=== PATIENT | female | born 1950 | race Caucasian/White ===

== ENCOUNTER 2020-12-30 12:51 | Outpatient (CLI) | payer MEDICARE, MEDICAID, SELFPAY ==
--- NOTE | 2020-12-30 13:12 | MM_ITS ---
WS: [id number] BILATERAL DIGITAL SCREENING MAMMOGRAPHY WITH CAD CLINICAL INFORMATION: SCREENING HISTORY: Screening mammogram. No current complaints. COMPARISON: TECHNIQUE: Bilateral CC and MLO views. FINDINGS: Scattered fibroglandular densities bilaterally. Vascular calcification. No suspicious focal mass, asy mmetry, calcifications, or architectural distortion. No evidence of malignancy. MM/[place] [id number] IMPRESSION: BI-RADS: 2-Benign FOLLOW UP: 1 Year Follow-up Recommend return to annual screening mammography.
== END 2020-12-30 12:52 | disposition home or self-care (01) ==
LOC: RADSHAW 12:59
PROVIDERS: PCP Internal Medicine; Visit Provider Internal Medicine
DX: Z12.31 Encounter for screening mammogram for malignant neoplasm of breast (principal)
CPT/HCPCS: 77067

== ENCOUNTER → 2021-05-13 17:30 | Outpatient (BNVA) | payer MEDICARE, MEDICAID, SELFPAY | PROVIDERS: PCP Internal Medicine; Visit Provider Registered Nurse Neonatal Intensive Care | DX: R05 Cough (principal); Z20.822 Contact with and (suspected) exposure to COVID-19 | CPT/HCPCS: 87635 ==

== ENCOUNTER 2021-05-14 15:36 | Emergency (ER) | payer MEDICARE, MEDICAID, SELFPAY ==
[2021-05-14 17:06] VITALS: BP 131/73; PULSE 67; RESP 14; TEMP 36.9; O2SAT 94; BMI 29.0
--- NOTE | 2021-05-14 18:12 | XRR_ITS ---
PROCEDURE INFORMATION: Exam: XR Chest Exam date and time: 05/14/2021 6:12 PM Age: 70 years old Clinical indication: Cough and shortness of breath; Additional info: SOB TECHNIQUE: Imaging protocol: XR of the chest. Views: 1 view. COMPARISON: No relevant prior studies available. FINDINGS: Lungs: Unremarkable. No consolidation. Pleural spaces: Unremarkable. No pleural effusion. No pneumothorax. Heart/Mediastinum: Unremarkable. No cardiomegaly. Bones/joints: Unremarkable. XR/XR chest 1V portable [id number] IMPRESSION: No acute findings.
--- NOTE | 2021-05-14 19:44 | W.ED.COVID ---
HPI - COVID General: Chief Complaint: COVID symptoms Stated Complaint: COVID+:[place] [facility] [place] Seen by Provider: 05/14/21 19:30 Triage information: Has fever, cough or shortness of breath. No known COVID + exposure last 14 days History of Present Illness: HPI Narrative: Patient is a 70-year-old female comes to the ED with Covid symptoms. Patient has been having a dry cough and shortness of breath for the past 4 days. She was seen at urgent care yesterday and they tested her for COVID-19 but results pending. Urgent care told patient to come here to the ED because they thought she seemed dehydrated. Patient endorses having some fatigue and says the shortness of breath occurs while at rest and gets worse when she is up moving around. She also describes having some chest heaviness as well. Patient has not received the COVID-19 vaccination. She denies any known contact with any Covid positive patients. Patient denies any history of lung disease and is not on any oxygen at home. Patient does report being outside and working in the heat over the past couple days. COVID 19 common symptoms: positive non-productive cough, dyspnea and fatigue; negative fever(s), chills, productive cough, headache(s), throat pain, nasal congestion, nausea, vomiting or diarrhea COVID 19 other sytmptoms: negative chest pain COVID Results: SARS-CoV-2 Antigen (Rapid) Negative (Negative) 05/14/21 19:43 05/14/21 SARS-CoV-2 RNA (RT-PCR) Detected (NOT DETECTED) A 05/13/21 17:30 05/13/21 Review of Systems Const: Reports: fatigue; Denies: fever(s) or chills Eyes: Denies: change in vision or eye discomfort ENMT: Denies: throat pain, odynophagia, nasal discharge or nasal congestion Card: Denies: chest pain, palpitations, edema, swelling of feet/ankles, dyspnea on exertion or orthopnea Resp: Reports: dyspnea and non-productive cough; Denies: productive cough GI: Denies: abdominal pain, nausea, vomiting, diarrhea, constipation or hematochezia : Denies: flank pain, dysuria or hematuria Musc: Denies: neck pain, back pain or extremity swelling Skin/Breast: Denies: rash or new lesions Neuro: Denies: headache(s), numbness in extremities or weakness in extremities Physical Exam Const: COMMON NORMALS: no acute distress, patient oriented x3 and alert GENERAL APPEARANCE: cooperative and comfortable HENMT: COMMON NORMALS: normocephalic HEAD & SCALP: normocephalic MOUTH: moist mucous membranes abnormal Details: parched THROAT: posterior oropharynx normal and uvula midline Neck/C-Spine: COMMON NORMALS: supple GENERAL: Yes normal visual inspection Resp: COMMON NORMALS: normal respiratory effort, No retractions, No use of accessory muscles and clear to auscultation bilaterally EFFORT & INSPECTION: Yes able to speak in complete sentences, Yes tachypneic (20-24 resp/min), No respiratory distress and No labored AUSCULTATION: clear to auscultation bilaterally Cardio: COMMON NORMALS: regular rate, regular rhythm, S1 normal heart sound present, S2 normal heart sound present, No gallops present (Cardio), No clicks present (Cardio), No murmurs present (Cardio) and Peripheral pulses 2+ throughout RATE: regular rate RHYTHM: regular rhythm HEART SOUNDS: S1 normal heart sound present and S2 normal heart sound present PERIPHERAL PULSES: Peripheral pulses 2+ throughout GI: COMMON NORMALS: Normal to inspection, nondistended, normoactive bowel sounds present, Soft to palpation, non-tender and no masses PALPATION: Yes Soft to palpation : COMMON NORMALS: Yes no CVA tenderness BLADDER/KIDNEY EXAM: Yes no CVA tenderness Back/Pelvis: COMMON NORMALS: no CVA tenderness Extremity: COMMON NORMALS: normal to inspection Neuro: COMMON NORMALS: patient oriented x3 and moves all extremities SENSORIUM/ORIENTATION: Yes alert Skin: GENERAL SKIN EXAM: dry skin Course Vital Signs: Vital signs: Vital Signs Temperature 98.4 F 05/14/21 17:06 Pulse Rate 72 05/15/21 00:12 Respiratory Rate 16 05/15/21 00:12 Blood Pressure 140/78 05/15/21 00:12 Pulse Oximetry 92 05/15/21 00:12 MDM - COVID MDM Narrative: Medical decision making narrative: Patient is a 70-year-old female comes to the ED with Covid symptoms. Patient is having some cough shortness of breath and some nausea and emesis. Patient has a COVID-19 PCR test pending. Patient has been outside working in the heat for the past couple days and could be the cause of some of her symptoms. Here in the ED patient appears in no acute distress or pain. Vitals are stable. Exam is benign. Potassium 3.0 and creatinine was 1.0. The rest of CBC and CMP were unremarkable. Patient's rapid Covid test was negative. Chest x-ray showed no acute findings. Troponin negative and EKG showed normal sinus rhythm with no signs of any ST segment elevation or depression seen. RT performed and home O2 eval and patient did not qualify. Patient was given IV fluids, potassium chloride. Patient diagnosed with viral syndrome, hypokalemia and dehydration. She was discharged home with a prescription for Zofran and told to follow-up with her PCP in 3 to 5 days to recheck potassium levels. Return to ED precautions given. I told her that her PCR test is still pending and she will be notified with results when they are in. Patient understood agree with plan. Lab Data: Attestation: I reviewed the patient's lab results. Labs: Lab Results 05/14/21 05/14/21 05/14/21 Range/Units 19:43 19:58 19:58 WBC 4.4 (4.0-10.0) 10^3/ uL RBC 4.82 (4.1-5.3) 10^6/u L Hgb 13.9 (11.5-15.3) g/dL Hct 39.7 (37.0-47.0) % MCV 82.4 (81-99) fL MCH 28.8 (28.0-34.0) pg MCHC 35.0 (30.0-36.0) g/dL RDW 12.2 (12.1-15.1) % Plt Count 128 L (130-400) 10^3/c mm MPV 11.4 H (7.4-10.4) fL Neut % (Auto) 68.0 % Lymph % (Auto) 21.4 % [place] % (Auto) 10.4 % Eos % (Auto) 0.0 % Baso % (Auto) 0.0 % Neut # (Auto) 3.01 (1.8-7.7) 10^3/u L Lymph # (Auto) 1.0 (0.8-4.8) 10^3/u L [place] # (Auto) 0.5 (0.2-0.9) 10^3/u L Eos # (Auto) 0.0 (0.0-0.8) 10^3/u L Baso # (Auto) 0.0 (0.0-0.1) 10^3/u L Nucleated RBC % (a uto) 0 % Nucleated RBCs # 0.0 /100WBC Sodium 133 L (136-145) mmol/L Potassium 3.0 L (3.5-5.1) mmol/L Chloride 92 L (98-107) mmol/L Carbon Dioxide 25 (22-29) mmol/L Anion Gap 19.0 (5-19) BUN 24 H (8-23) mg/dL Creatinine 1.0 H (0.5-0.9) mg/dL GFR Calculation Not Reportable Glucose 114 (65-115) mg/dL Calculated Osmolal ity 281 L (285-295) mOsm/k g Calcium 8.5 (8.5-10.5) mg/dL Total Bilirubin 0.7 (0.15-1.2) mg/dL AST 42 H (0-32) U/L ALT 28 (0-33) U/L Alkaline Phosphata se 79 (35-105) IU/L Troponin T Baselin e (0-10) ng/L Troponin T 120 [address] [place] (0-10) ng/L Delta Troponin T (0-10) ABS# Total Protein 7.2 (6.6-8.7) g/dL Albumin 4.3 (3.5-5.2) g/dL Globulin 2.9 (1.3-4.6) g/dL SARS-CoV-2 Ag (Rap id) Negative (Negative) 05/14/21 05/14/21 Range/Units 19:58 21:58 WBC (4.0-10.0) 10^3/ uL RBC (4.1-5.3) 10^6/u L Hgb (11.5-15.3) g/dL Hct (37.0-47.0) % MCV (81-99) fL MCH (28.0-34.0) pg MCHC (30.0-36.0) g/dL RDW (12.1-15.1) % Plt Count (130-400) 10^3/c mm MPV (7.4-10.4) fL Neut % (Auto) % Lymph % (Auto) % [place] % (Auto) % Eos % (Auto) % Baso % (Auto) % Neut # (Auto) (1.8-7.7) 10^3/u L Lymph # (Auto) (0.8-4.8) 10^3/u L [place] # (Auto) (0.2-0.9) 10^3/u L Eos # (Auto) (0.0-0.8) 10^3/u L Baso # (Auto) (0.0-0.1) 10^3/u L Nucleated RBC % (a uto) % Nucleated RBCs # /100WBC Sodium (136-145) mmol/L Potassium (3.5-5.1) mmol/L Chloride (98-107) mmol/L Carbon Dioxide (22-29) mmol/L Anion Gap (5-19) BUN (8-23) mg/dL Creatinine (0.5-0.9) mg/dL GFR Calculation Glucose (65-115) mg/dL Calculated Osmolal ity (285-295) mOsm/k g Calcium (8.5-10.5) mg/dL Total Bilirubin (0.15-1.2) mg/dL AST (0-32) U/L ALT (0-33) U/L Alkaline Phosphata se (35-105) IU/L Troponin T Baselin e 12 H (0-10) ng/L Troponin T 120 [address] [place] 10.38 H (0-10) ng/L Delta Troponin T -1.62 L (0-10) ABS# Total Protein (6.6-8.7) g/dL Albumin (3.5-5.2) g/dL Globulin (1.3-4.6) g/dL SARS-CoV-2 Ag (Rap id) (Negative) Imaging Data: CXR: Attestation: I personally reviewed and interpreted this imaging study as follows: Radiologist's impression: [address] [address] XRay Report Signed Patient: Citlaly Roman Unit #: [id number] : 1950 Age/Sex: 70 / F ADM Date: 05/14/21 Loc: ER Room/Bed: Attending Dr: Ordering Provider/Ordering MD: Anuradha Cedeño MD Date of Service: 05/14/21 Procedure(s): XR chest 1V portable [id number] Accession Number(s): [id number] Report Number: [id number] PROCEDURE INFORMATION: Exam: XR Chest Exam date and time: 05/14/2021 6:12 PM Age: 70 years old Clinical indication: Cough and shortness of breath; Additional info: SOB TECHNIQUE: Imaging protocol: XR of the chest. Views: 1 view. COMPARISON: No relevant prior studies available. FINDINGS: Lungs: Unremarkable. No consolidation. Pleural spaces: Unremarkable. No pleural effusion. No pneumothorax. Heart/Mediastinum: Unremarkable. No cardiomegaly. Bones/joints: Unremarkable. XR/XR chest 1V portable [id number] IMPRESSION: No acute findings. Dictated By: Jaime Durbin Signed By: Jaime Durbin Signed Date/Time: 05/14/211949 DD/ 47 EKG Data: EKG 1: Attestation: I personally reviewed and interpreted this EKG as follows: EKG interpretation date: 05/14/21 Interpretation: Normal sinus rhythm, 69 bpm, no ST segment elevation or depression noted. COVID Results: SARS-CoV-2 Antigen (Rapid) Negative (Negative) 05/14/21 19:43 05/14/21 SARS-CoV-2 RNA (RT-PCR) Detected (NOT DETECTED) A 05/13/21 17:30 05/13/21 Discharge Plan Discharge Patient Disposition: Home Clinical Impression: Viral syndrome, Hypokalemia, Dehydration Condition: Stable Prescriptions: New ondansetron 4 mg tablet,disintegrating 4 mg PO Q8H PRN (Reason: nausea and vomiting) Qty: 15 RF: 0 No Action hydrochlorothiazide 12.5 mg capsule 12.5 cap PO DAILY RF: 0 citalopram 20 mg tablet 20 tab PO DAILY RF: 0 pravastatin 40 mg tablet 40 tab PO DAILY RF: 0 spironolactone 25 mg tablet 25 tab PO DAILY RF: 0 amlodipine 10 mg tablet 10 tab PO DAILY RF: 0 benzonatate [Tessalon Perles] 100 mg capsule 100 mg PO TID PRN (Reason: cough) Qty: 30 RF: 0 Discharge Orders: Discharge ED (Routine); Ordered 05/14/21 Ordered By: Fredrick Arora Referrals: Beena Whaley, [Primary Care Provider] - Discharge Diet: Advance as tolerated Discharge Activity: Increase activity as tolerated Patient Instructions: Hypokalemia (ED), Viral Syndrome (ED) Activity Restrictions/Additional Instructions: Follow-up with medical provider to have potassium levels rechecked in about 3 to 5 days. Self quarantine as previously instructed until PCR test results come back. [facility] should contact you when test results are in or contact [facility] to find out results. Take medications as prescribed. Make sure you drink plenty of fluids and stay hydrated. Return to the ER or your medical provider if condition worsens. Please read and understand discharge instructions. Thank you for choosing [facility] for your healthcare needs today. Please realize this is an emergency room and that we are providing you with a medical screening exam and this may not be complete and all inclusive of all the testing and or work up that you may need to determine your ailment or severity of your illness. It is very important that you follow up as instructed or that you return to the Emergency Department should you have concerns or if your condition changes or worsens in any way. Coding Level of Care Code ED Public Health for [facility] Exam Comprehensive
--- NOTE | 2021-05-14 19:45 | ECG_ITS ---
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 Measurements Intervals [place] Rate: 69 P: 24 UT: 140 QRS: -45 QRSD: 145 T: 80 QT: 468 QTc: 502 Interpretive Statements SINUS RHYTHM MARKED LEFT AXIS DEVIATION [QRS AXIS < -30] LEFT BUNDLE BRANCH BLOCK [120+ ms QRS DURATION, 80+ ms Q/S IN V1/V2, 85+ ms R IN I/aVL/V5/V6] No previous ECG available for comparison Electronically Signed On 05-19-2021 0:27:44 CDT by Kimberlee Hutchinson M.D. [email or web address]
[2021-05-14] MEDS: sodium chloride 0.9% 1,000 ML 999 ML IV (19:50)
[2021-05-14 20:11] VITALS: O2SAT 95
[2021-05-14 20:13] LABS: Hematocrit 39.7 % (37.0-47.0); Hemoglobin 13.9 g/dL (11.5-15.3); Lymphocytes % 21.4 %; Mean Corpuscular Hemoglobin 28.8 pg (28.0-34.0); Mean Corpuscular Volume 82.4 fL (81-99); Mean Platelet Volume 11.4 fL (7.4-10.4); Monocytes # 0.5 10^3/uL (0.2-0.9); Monocytes % 10.4 %; Neutrophils # 3.01 10^3/uL (1.8-7.7); Nucleated Red Blood Cells % 0 %; Platelet Count 128 10^3/cmm (130-400); Red Blood Count 4.82 10^6/uL (4.1-5.3); Red Cell Distribution Width 12.2 % (12.1-15.1); White Blood Count 4.4 10^3/uL (4.0-10.0)
[2021-05-14 20:25] LABS: Troponin(5th) Baseline 12 ng/L (0-10)
[2021-05-14 20:27] LABS: Alanine Aminotransferase 28 U/L (0-33); Albumin Level 4.3 g/dL (3.5-5.2); Alkaline Phosphatase 79 IU/L (35-105); Aspartate Amino Transferase 42 U/L (0-32); Blood Urea Nitrogen 24 mg/dL (8-23); Calcium 8.5 mg/dL (8.5-10.5); Carbon Dioxide 25 mmol/L (22-29); Chloride 92 mmol/L (98-107); Globulin 2.9 g/dL (1.3-4.6); Glucose 114 mg/dL (65-115); Osmolality Calculated 281 mOsm/kg (285-295); Sodium 133 mmol/L (136-145); Total Bilirubin 0.7 mg/dL (0.15-1.2); Total Protein 7.2 g/dL (6.6-8.7)
[2021-05-14 20:47] LABS: SARS Covid-2 Antigen Negative (Negative)
[2021-05-14] MEDS: sodium chloride 0.9% 500 ML 999 ML IV (20:52)
[2021-05-14] MEDS: potassium chloride ER 20 mEq Tablet PO (20:52)
[2021-05-14 21:05] VITALS: BP 144/87; PULSE 69; RESP 18; O2SAT 95
--- NOTE | 2021-05-14 21:48 | PC.NURSE ---
Daughter Latisha Macdonald called and was given update, as she is on the pt's list. She states she is upstairs with another patient, so asks to be called if pt is to be discharged.
[2021-05-14 22:35] LABS: Troponin 5 2HR 10.38 ng/L (0-10)
[2021-05-14 22:45] LABS: Troponin 5 2HR Delta -1.62 ABS# (0-10)
[2021-05-14 22:52] VITALS: O2SAT 90; O2SAT 92
[2021-05-15 00:12] VITALS: BP 140/78; PULSE 72; RESP 16; O2SAT 92
== END 2021-05-15 00:13 | disposition home or self-care (01) ==
PROVIDERS: Emergency Medicine; Emergency Provider Physician Assistant; PCP Internal Medicine
DX: B34.9 Viral infection, unspecified (principal); E86.0 Dehydration; E87.6 Hypokalemia
CPT/HCPCS: 71045; 80053; 84484; 85025; 87040; 87426; 93005; 96360; 99284; J7030; J7040

== ENCOUNTER 2021-05-21 11:44 | Outpatient (CLI) | payer MEDICARE, MEDICAID, SELFPAY ==
[2021-05-21 12:16] VITALS: BP 128/68; PULSE 84; RESP 18; TEMP 36.7; O2SAT 92
[2021-05-21 12:53] VITALS: BP 119/62; PULSE 76; RESP 18; TEMP 36.9; O2SAT 92
[2021-05-21 13:47] VITALS: BP 112/61; PULSE 80; TEMP 36.6; O2SAT 94
== END 2021-05-21 14:10 | disposition home or self-care (01) ==
PROVIDERS: PCP Internal Medicine; Visit Provider Internal Medicine
DX: U07.1 COVID-19 (principal)
CPT/HCPCS: 96365

== ENCOUNTER 2022-09-01 13:45 | Outpatient (CLI) | payer MEDICARE, MEDICAID, SELFPAY ==
--- NOTE | 2022-09-01 13:57 | MM_ITS ---
WS: [id number] BILATERAL 3D TOMOSYNTHESIS DIGITAL SCREENING MAMMOGRAPHY WITH CAD CLINICAL INFORMATION: SCREENING HISTORY: Screening mammogram. No current complaints. COMPARISON: 2020 TECHNIQUE: Bilateral CC and MLO views. FINDINGS: Scattered fibroglandular densities bilaterally. No suspicious focal mass, asymmetry, calcifications, or architectural distortion. No evidence of malignancy. Vascular calcification. MM/[place] [id number] IMPRESSION: BI-RADS: 2-Benign FOLLOW UP: 1 Year Follow-up Recommend return to annual screening mammography.
== END 2022-09-01 13:46 | disposition home or self-care (01) ==
LOC: RAD 13:46
PROVIDERS: Visit Provider Family Medicine
DX: Z12.31 Encounter for screening mammogram for malignant neoplasm of breast (principal)
CPT/HCPCS: 77063; 77067

== ENCOUNTER 2022-09-01 13:45 | Outpatient (CLI) | payer MEDICARE, MEDICAID, SELFPAY ==
--- NOTE | 2022-09-01 14:17 | XR_ITS ---
WS: [id number] SCREENING DEXA SCAN 1Rebel CLINICAL INFORMATION: OSTEOPOROSIS SCREENING COMPARISON: None. FINDINGS: The L1-L4 bone mineral density measures 1.179 g/cm2. This corresponds to a T score score of 0.0 and Z score of 1.2. Left femoral neck bone mineral density measures 0.823 g/cm2. This corresponds to a T score of -1.5 an d Z score of -0.2. Right femoral neck bone mineral density measures 0.861 g/cm2. This corresponds to a T score -1.2of an d Z score of 0.1. Mean femoral neck bone mineral density measures 0.842 g/cm2. This corresponds to a T score of -1.3 an d Z score of 0.0. XR/XR DEXA axial skeleton* [id number] IMPRESSION: Normal bone mineralization lumbar spine. Osteopenia femoral necks Patient's FRAX calculated 10 year probability for major osteoporotic fracture i s 14.9 % and osteoporotic hip fracture is 4.1%.
== END 2022-09-01 13:46 | disposition home or self-care (01) ==
LOC: RAD 13:46
PROVIDERS: Visit Provider Nurse Practitioner Family
DX: Z78.0 Asymptomatic menopausal state (principal); Z13.820 Encounter for screening for osteoporosis
CPT/HCPCS: 77080

== ENCOUNTER 2023-09-20 08:30 | Outpatient (CLI) | payer MEDICARE, MEDICAID, SELFPAY ==
--- NOTE | 2023-09-20 08:35 | MM_ITS ---
WS: [id number] BILATERAL SCREENING DIGITAL TOMOSYNTHESIS MAMMOGRAM WITH CAD HISTORY: SCREENING COMPARISON: 09/01/2022 and 12/30/2020 Bilateral CC and MLO views with tomosynthesis and synthetic mammography submitted. Computer aided det ection analyzed. Breast composition: There are scattered areas of fibroglandular density. No suspicious masses, microc alcifications or architectural distortion. Numerous bilateral breast arterial calcifications. IMPRESSION: MM/[place] [id number] BI-RADS: 2-Benign FOLLOW UP: 1 Year Follow-up
== END 2023-09-20 08:31 | disposition home or self-care (01) ==
LOC: RAD 08:31
PROVIDERS: PCP Nurse Practitioner Family; Visit Provider Family Medicine
DX: Z12.31 Encounter for screening mammogram for malignant neoplasm of breast (principal)
CPT/HCPCS: 77063; 77067

== ENCOUNTER 2024-10-17 08:30 | Outpatient (CLI) | payer MEDICARE, MEDICAID, SELFPAY ==
--- NOTE | 2024-10-17 08:33 | MM_ITS ---
WS: [id number] Bilateral screening 3D tomosynthesis digital mammogram, 10/17/2024 8:35 AM Clinical Data: SCREENING Comparison: 09/20/2023, 09/01/2022, 12/30/2020, 03/10/2019, 04/17/2010, 08/20/2008. Findings: No spiculated masses or clustered calcifications are seen. There are no secondary signs of carcinoma . There are scattered vascular calcifications in both breasts. MM/MM scr BI tomosynthesis [id number] Impression: Negative bilateral mammogram unchanged. Recommend annual screening mammograms. BIRADS: 1 - Negative. FOLLOW UP: 1 Year Follow-up DENSITY: There are scattered areas of fibroglandular density. The CAD relay checker was used
== END 2024-10-17 08:31 | disposition home or self-care (01) ==
LOC: RAD 08:32
PROVIDERS: PCP Family Medicine; Visit Provider Family Medicine
DX: Z12.31 Encounter for screening mammogram for malignant neoplasm of breast (principal); R92.1 Mammographic calcification found on diagnostic imaging of breast
CPT/HCPCS: 77063; 77067